=== PATIENT | female | born 1995 | race African-American/Black ===

== ENCOUNTER 2025-01-14 14:50 | Emergency (ER) | payer MEDICAID ==
[~2025-01-14] VITALS: Ht 157.5 cm; Wt 61.2 kg
[2025-01-14 15:57] LABS: PLATELET COUNT (AUTO) 251 K/uL (179-408); RED BLOOD CELL COUNT(AUTO) 4.54 MIL/uL (3.63-4.92); RED CELL DISTRIBUTION WIDTH 13.4 % (12.3-17.7); WHITE BLOOD COUNT (AUTO) 6.3 K/uL (3.8-11.8)
[2025-01-14 16:03] LABS: CREATININE 0.5 mg/dL (0.6-1.3); SODIUM SERUM 142 mmol/L (136-145); UREA NITROGEN, BLOOD 8 mg/dL (7-18)
[2025-01-14 17:00] VITALS: BP 122/64
[2025-01-14 17:29] VITALS: BP 110/76; O2SAT 97
== END 2025-01-14 17:30 | disposition home or self-care (01) ==
LOC: ER 14:50
DX: R07.89 Other chest pain (principal); I49.8 Other specified cardiac arrhythmias; E83.51 Hypocalcemia
CPT/HCPCS: 36415; 71045; 83735; 84443; 84484; 85025; A4606; A4663